=== PATIENT | male | born 1950 | race Caucasian/White ===

== ENCOUNTER → 2016-07-03 | Outpatient (CLI) | payer OTHER ==
[~2016-07-03] MED LIST: ACT35 PO; ANDRO GEL EXT; ASPEC81 PO; CALC500C70 PO; CHOL100010 PO; CMD5 PO; CYM60 PO; EZET10TA63 PO; FLX10 PO; OXYC-57 PO; [UNRECOGNIZED DRUG - OTHER] PO
== END | disposition home or self-care (01) ==
LOC: C.PATHSPEC 17:10
PROVIDERS: ATTEND Urology
DX: R31.29 Other microscopic hematuria (principal)